=== PATIENT | male | born 1945 | race Caucasian/White ===

== ENCOUNTER 2016-10-08 06:26 | Day surgery (SDC) | payer BC, MEDICARE ==
--- NOTE | ~2016-10-08 | EGD ---
EGD REPORT [facility] [address] [place] [address] NAME: LONG EVANS : [birth year] STATUS : REG [facility]#: [id number] AGE: 71 ADM/REG DATE : 10/08/16 MR#: [id number] REPORT SERV DATE: 10/08/16 DICTATED BY: MINO DE LA ROSA DATE: 10/08/16 REPORT STATUS : Draft [facility]: [facility] DATE: 10/08/16 Endoscopy Center Patient Name: Long Evans Date of : 1945 Attending MD: MINO DE LA ROSA MD Procedure Date No Time: 10/08/2016 Procedure: Colonoscopy Indications: High risk colon CA surveillance: Personal history multiple (3 or more) adenomas; last exam 2013. Patient Profile: Informed consent was obtained from the patient by me prior to the procedure. Risks, benefits, and alternatives were discussed including the risk of bleeding, perforation, infection, reaction to medicine, missed lesion, and cardiopulmonary complications. Referring MD: MEIR RUANO MD, AMANDA CASTAÑEDA Medicines: Monitored Anesthesia Care Complications: No immediate complications. Procedure: Pre-Anesthesia Assessment: - ASA Grade Assessment: II - A patient with mild systemic disease. After I obtained informed consent, the scope was passed under direct vision. Throughout the procedure, the patient's blood pressure, pulse, and oxygen saturations were monitored continuously. The CF [id number] was introduced through the anus and advanced to the cecum, identified by appendiceal orifice and ileocecal valve. The colonoscope was slowly withdrawn with careful examination all mucosal surfaces including specific attention around flexures and tip deflection behind folds; retroflexion performed in rectum. The colonoscopy was performed without difficulty. The patient tolerated the procedure well. The quality of the bowel preparation was adequate. The ileocecal valve, appendiceal orifice, terminal ileum and rectum were photographed. Findings: The terminal ileum appeared normal. A sessile polyp was found in the distal transverse colon. The polyp was 5 mm in size. The polyp was removed with a cold biopsy forceps. Resection and retrieval were complete. A sessile polyp was found in the proximal descending colon. The polyp was 5 mm in size. The polyp was removed with a cold biopsy forceps. Resection and retrieval were complete. Multiple medium-mouthed diverticula were found in the sigmoid colon and in the descending colon. EGD REPORT [address] [address] NAME: LONG EVANS : [birth year] STATUS : REG [facility]#: [id number] AGE: 71 ADM/REG DATE : 10/08/16 MR#: [id number] REPORT SERV DATE: 10/08/16 DICTATED BY: IMNO DE LA ROSA DATE: 10/08/16 REPORT STATUS : Draft TRANSCRIBED BY: [employer] DATE: 10/08/16 Impression: - The examined portion of the ileum was normal. - One 5 mm polyp in the distal transverse colon. Resected and retrieved. - One 5 mm polyp in the proximal descending colon. Resected and retrieved. - Diverticulosis in the sigmoid colon and in the descending colon. Recommendation: - Patient has a contact number available for emergencies. The signs and symptoms of potential delayed complications were discussed with the patient. Return to normal activities tomorrow. Written discharge instructions were provided to the patient. - Regular diet. - Continue present medications. - Await pathology results. - Repeat colonoscopy for surveillance based on pathology results. Procedure Code(s): --- Professional --- 83989, Colonoscopy, flexible, proximal to splenic flexure; with biopsy, single or multiple Diagnosis Code(s): --- Professional --- K57.30, Diverticulosis of large intestine without perforation or abscess without bleeding D12.4, Benign neoplasm of descending colon D12.3, Benign neoplasm of transverse colon Z86.010, Personal history of colonic polyps CPT copyright 2013 [employer]. All rights reserved. The codes documented in this report are preliminary and upon appliance service technician review may be revised to meet current compliance requirements. MINO DE LA ROSA MD 10/08/2016 8:22 AM This report has been signed electronically. Number of Addenda: 0 Note Initiated On: 10/08/2016 7:39 AM Scope Withdrawal Time 0 hours 10 minutes 32 seconds [address] [place] [id number]
--- NOTE | ~2016-10-08 | EGD ---
EGD REPORT [facility] [address] [place] [address] NAME: LONG EVANS : [birth year] STATUS : REG [facility]#: [id number] AGE: 71 ADM/REG DATE : 10/08/16 MR#: [id number] REPORT SERV DATE: 10/08/16 DICTATED BY: MINO DE LA ROSA DATE: 10/08/16 REPORT STATUS : Draft [facility]: [facility] DATE: 10/08/16 Endoscopy Center Patient Name: Long Evans Date of : 1945 Attending MD: MINO DE LA ROSA MD Procedure Date No Time: 10/08/2016 Procedure: Upper GI endoscopy Indications: Dysphagia, Heartburn; Zantac 150mg bid; h/o GIST T1N0 narrow margins resection 2012. Patient Profile: Informed consent was obtained from the patient by me prior to the procedure. Risks, benefits, and alternatives were discussed including the risk of bleeding, perforation, infection, reaction to medicine, missed lesion, and cardiopulmonary complications. Referring MD: AMANDA CASTAÑEDA Medicines: Monitored Anesthesia Care Complications: No immediate complications. Procedure: Pre-Anesthesia Assessment: - ASA Grade Assessment: II - A patient with mild systemic disease. After obtaining informed consent, the endoscope was passed under direct vision. Throughout the procedure, the patient's blood pressure, pulse, and oxygen saturations were monitored continuously. The GIF [id number] was introduced through the mouth, and advanced to the second part of duodenum. The endoscope was withdrawn with careful examination all mucosal surfaces including retroflexion stomach. The upper GI endoscopy was accomplished without difficulty. The patient tolerated the procedure well. Findings: The examined duodenum was normal. The entire examined stomach was normal. Fundus normal; suture line seen. LA Grade A (one or more mucosal breaks less than 5 mm, not extending between tops of 2 mucosal folds) esophagitis was found, no nodules. The esophagus and gastroesophageal junction were examined with white light. There was no visual evidence of Baird's esophagus. The examined esophagus was normal. Impression: - Normal examined duodenum. - Normal stomach. - LA Grade A reflux esophagitis. - There is no endoscopic evidence of Baird's esophagus. - Normal esophagus. EGD REPORT [address] [address] NAME: LONG EVANS : [birth year] STATUS : REG [facility] PAT#: [id number] AGE: 71 ADM/REG DATE : 10/08/16 MR#: [id number] REPORT SERV DATE: 10/08/16 DICTATED BY: MINO DE LA ROSA DATE: 10/08/16 REPORT STATUS : Draft TRANSCRIBED BY: [employer] DATE: 10/08/16 Recommendation: - Patient has a contact number available for emergencies. The signs and symptoms of potential delayed complications were discussed with the patient. Return to normal activities tomorrow. Written discharge instructions were provided to the patient. - Regular diet. - Continue present medications. - Start Pantoprazole 40mg daily. - EGD 2 years h/o GIST. Procedure Code(s): --- Professional --- 23337, Esophagogastroduodenoscopy, flexible, transoral; diagnostic, including collection of specimen(s) by brushing or washing, when performed (separate procedure) Diagnosis Code(s): --- Professional --- K21.0, Gastro-esophageal reflux disease with esophagitis R13.10, Dysphagia, unspecified R12, Heartburn CPT copyright 2013 [employer]. All rights reserved. The codes documented in this report are preliminary and upon tractor operator helper review may be revised to meet current compliance requirements. MINO DE LA ROSA MD 10/08/2016 8:03 AM This report has been signed electronically. Number of Addenda: 0 Note Initiated On: 10/08/2016 7:53 AM Scope Withdrawal Time 0 hours 0 minutes 0 seconds [id number] [place] [id number]
[~2016-10-08 06:26] MED LIST: AMB10 PO; CENTRUM TAB1 TAB PO; FLONASE NAS; GAVISCO2 PO; GAVISCON6 PO; HALCION0.25 MG PO; NASACORTAQ NAS; NASONEX NAS; NEXIUM40 PO; RESTASIS OPH; T PO; TYLENOL PM PO; VIAGRA25 PO; VICODINTAB PO; VITAMIN C100 MG PO; X25 PO; X5 PO; XYZAL5 MG PO; ZANTAC150 MG PO; ZYRTEC ALLGY10 MG PO; [UNRECOGNIZED DRUG - OTHER] PO
== END 2016-10-08 23:59 | disposition home or self-care (01) ==
LOC: DMU 06:26
PROVIDERS: Internal Medicine Gastroenterology
PROC: 0DBM8ZX Excision of Descending Colon, Via Natural or Artificial Opening Endoscopic, Diagnostic (ICD-10-PCS; 2016-10-08)
PROC: 0DJ08ZZ Inspection of Upper Intestinal Tract, Via Natural or Artificial Opening Endoscopic (ICD-10-PCS; principal; 2016-10-08 07:30)
PROC: 0DBL8ZX Excision of Transverse Colon, Via Natural or Artificial Opening Endoscopic, Diagnostic (ICD-10-PCS; 2016-10-08 07:30)
DX: Z12.11 Encounter for screening for malignant neoplasm of colon (principal); D12.4 Benign neoplasm of descending colon; K21.0 Gastro-esophageal reflux disease with esophagitis; M19.90 Unspecified osteoarthritis, unspecified site; J32.9 Chronic sinusitis, unspecified; F41.9 Anxiety disorder, unspecified; Z79.899 Other long term (current) drug therapy; Z98.52 Vasectomy status; Z98.890 Other specified postprocedural states
CPT/HCPCS: 88305